=== PATIENT | female | born 2000 | race Caucasian/White ===

== ENCOUNTER 2018-12-11 22:55 | Emergency (ER) | payer OTHER, SELFPAY ==
--- NOTE | 2018-12-11 00:08 | DI.CT_ITS ---
SYMPTOMS/DIAGNOSIS: GENERALIZED ABDOMINAL PAIN, LEFT LOWER QUADRANT AND RIGHT LOWER QUADRANT CT SCAN OF THE ABDOMEN AND PELVIS: CT scan of the abdomen and pelvis was performed following the uneventful administration of intravenous contrast material. There are no priors for comparison. The visualized lung bases are clear. The liver is normal in size. No evidence of a hepatic mass is seen. The portal and superior mesenteric veins are patent. The gallbladder is negative. There is no biliary ductal dilatation. The pancreas and peripancreatic soft tissues are unremarkable, as are the spleen and adrenal glands. The kidneys show normal and symmetric enhancement. No evidence of a solid renal mass or obstruction. The urinary bladder is intact. The reproductive organs are unremarkable. The bowel shows no evidence of obstruction or inflammation. There is a normal appendix present. The abdominal aorta is of normal caliber. No significant abdominal or pelvic adenopathy or pneumoperitoneum is seen. There is a trace amount of free fluid in the cul-de-sac. This may be physiologic. No focal fluid collection is seen to suggest an abscess. At L5-S1, there is a disc bulge slightly eccentric to the left. At L4-L5, there is a small central disc herniation. The bones show no acute abnormality. IMPRESSION: 1. No evidence of an acute abdomen or pelvis. 2. Trace amount of free fluid in the pelvis. This is nonspecific. 3. Disc bulges/herniations at L4-5 and L5-S1. If there are radicular concerns, an MRI of the lumbar spine should be considered for further evaluation.
[2018-12-11 22:58] VITALS: BP 117/61; PULSE 85; RESP 16; TEMP 36.7; O2SAT 98
--- NOTE | 2018-12-11 23:14 | ED.GENADUL_ITS ---
Discharge Plan Disposition Patient Disposition: HOME Condition: Good Discharge Details Chief Complaint: Abd Prob Clinical Impression: Abdominal pain Primary Care Provider: Elfego Myers ED Provider: Elfego Garay Home Meds and New Rx's Prescriptions: No Action Gummies Girls' Multivitamins 1 EACH tablet,chewable 1 ea PO DAILY RF: 0 acetaminophen [Tylenol Extra Strength] 500 mg Tablet 1,000 mg PO QID PRNRF: 0 Discharge Instructions Instructions: Abdominal Pain (ED) Additional Instructions: Your symptoms may be from a mild virus, or a potentially ruptured ovarian cyst. Please take Tylenol and Motrin as needed for pain, stay well-hydrated. If you notice any worsening of your symptoms, or any new symptoms such as vomiting, diarrhea, fever, chills, shortness of breath, chest pain, numbness, weakness, or fainting , please return immediately to the emergency department for reevaluation. Please follow up with your primary care provider as soon as possible for reassessment and reevaluation. As always, it was a pleasure participating in your medical care today. Referrals: Elfego Myers MD [Primary Care Provider] - Medical Decision Making This is a 18-year-old female with a past medical history of previous ovarian cyst who presents today for evaluation of generalized abdominal pain that started this morning. She describes it as crampy in nature. It goes from the lower abdomen, to the epigastric region. No pelvic tenderness though. Exam demonstrates relatively unremarkable abdomen with only mild subjective tenderness. Vital signs are notably normal. She ate dinner recently, has been having regular bowel movements, and has had no nausea or vomiting. We discussed risks and benefits of labs, imaging, medication. At this time we will treat the patient's pain, rehydrate, perform laboratory evaluation to rule out acute process, CT scan to rule out acute appendicitis, ovarian abnormality. Currently no ultrasound is available, and the patient has no pelvic pain or vaginal discharge as it is. 12:[address] scan has returned and demonstrates no evidence of significant acute process. There is evidence of trace ascites in the pelvis, I suspect potentially a ruptured cyst. No evidence of significant hemorrhage. The patient feels near completely resolved with her symptoms after Toradol. Vital signs continue to remain normal, laboratory work-up demonstrates no white count, normal hemoglobin, negative test, benign urinalysis, with no other significant abnormalities. At this time I feel the patient be safely discharged home. CT shows no evidence of appendicitis or other significant acute surgical abnormality. Signs and symptoms appear inconsistent at this time clinically with ovarian torsion. I have extensively reviewed the treatment plan and discharge instructions with the patient and their family. I have addressed all patient concerns at this time. The patient and family was made aware of what symptoms to monitor for that would warrant a return to the emergency department. Discussed the plan with the patient and family, they demonstrate verbal understanding and agreement with our assessment and plan at this time. FINDINGS: Liver: Normal. No mass. Gallbladder and bile ducts: Normal. No calcified stones. No ductal dilation. Pancreas: Normal. No ductal dilation. Spleen: Normal. No splenomegaly. Adrenals: Normal. No mass. Kidneys and ureters: Normal. No hydronephrosis. Stomach and bowel: Normal. No obstruction. No mucosal thickening. Appendix: No evidence of appendicitis. Intraperitoneal space: Trace pelvic ascites. Vasculature: Normal. No abdominal aortic aneurysm. Lymph nodes: Normal. No enlarged lymph nodes. Bladder: Unremarkable as visualized. Reproductive: Unremarkable as visualized. No ovarian cysts. Bones/joints: Left lateral recess disc bulge/protrusion at L5-S1 level. Soft tissues: Unremarkable. IMPRESSION: Nonspecific trace pelvic ascites. Disc bulge/protrusion at L5-S1 level. Thank you for allowing us to participate in the care of your patient. Dictated and Authenticated by: Gary Noel DO [facility] General Date/Time Provider Initiated Documentation: 12/11/18 22:55 . HPI Narrative: This is a 18-year-old female with no significant past medical history except for previous ovarian cyst, who presents today with abdominal pain. She states that the pain began this morning was generalized, however now it is radiating up to the epigastric region. She denies any nausea or vomiting. She describes the pain is crampy in nature, it is improved when she walks around. Worsened when she sits. She denies any dysuria, hematuria, increase in urinary frequency. She denies any diarrhea or constipation. Last bowel movement was 1 or 2 hours ago. She denies any significant recent alcohol intake. She denies any previous symptoms like this in the past. She denies previous abdominal surgeries. She has no other complaints at this time. She denies any vaginal discharge or pelvic pain. She is not currently on her period. She denies any IV or illicit drug use, any pertinent family history, or any previous surgeries Related Data Home Medications Medication Instructions Recorded Confirmed pediatric multivitamin no.29 1 ea PO DAILY 12/12/14 12/11/18 [Gummies Girls' Multivitamins] acetaminophen [Tylenol Extra 1,000 mg PO QID PRN 12/11/18 12/11/18 Strength] Allergies Allergy/AdvReac Type Severity Reaction Status Date / Time No Known Allergies Allergy Unverified 12/11/18 23:01 General Stated Complaint: Abd Prob MARAH: 3 Review of Systems Review of Systems All systems reviewed & are unremarkable except as noted in HPI and below PFSH Medical History Dysmenorrhea Pilonidal cyst with abscess Family History Mother Essential hypertension Migraines Healthy adult Superficial vein thrombosis Father Diabetes Essential hypertension Personal history of malignant neoplasm Hyperlipidemia Other No problems noted. Social History Smoking/Tobacco Use Status: Never Drug use: Never Exam Narrative Exam Narrative: 1.Const: Well-nourished, Well-developed, appearing stated age 2.Eyes: PERRL, no conjunctival injection, and symmetrical lids. 3.ENT: Atraumatic external nose and ears. Moist MM. Neck: Symmetric, trachea midline, No thyromegaly. 4.CVS: +S1/S2, No murmurs or gallops. Peripheral pulses 2+ and equal in all extremities. Brisk capillary refill in all extremities. 5.RESP: Unlabored respiratory effort. Clear to auscultation bilaterally. No wheezes rales or rhonchi 6.GI: Soft, Nondistended, No hepatosplenomegaly. No guarding or rebound. Generalized abdominal tenderness throughout, slightly worse in the right lower and left lower quadrant of the abdomen. Negative Weathers sign. Mild epigastric tenderness as well. Negative obturator and psoas sign. No CVA tenderness. Negative heel strike test. No pelvic tenderness 7.MSK: Normocephalic/Atraumatic, Extremities w/o deformity or ttp No cyanosis or clubbing, Normal movement of all extremities 8.Skin: Warm, Dry. No rashes or lesions. 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 Sensation grossly intact, no focal neurologic deficits. 10.Psych: (AAO) x3. Appropriate mood and affect Course Vital Signs Temperature 36.7 C 12/11/18 22:58 Pulse 85 12/11/18 22:58 Respiratory Rate 16 12/11/18 22:58 Blood Pressure 117/61 12/11/18 22:58 Pulse Oximetry 98 12/11/18 22:58 Temperature 36.7 C 12/11/18 22:58 Temperature Source Skin 12/11/18 22:58 Pulse 85 12/11/18 22:58 Respiratory Rate 16 12/11/18 22:58 Respiratory Effort Non-Labored 12/11/18 23:02 Blood Pressure 117/61 12/11/18 22:58 Blood Pressure Position Sitting 12/11/18 22:58 Pulse Oximetry 98 12/11/18 22:58 Oxygen Delivery Method Room Air 12/11/18 22:58 Oxygen Flow Rate 0 12/11/18 22:58
[2018-12-11 23:15] LABS: Bilirubin Negative (Negative); Blood Negative (Negative); Clarity Clear (Clear); Glucose Negative (Negative); Ketones Negative (Negative); Leukocyte Esterase Trace (Negative); Nitrite Negative (Negative); Urobilinogen 0.2 EU/dL (Up TO 0.2); pH 6.5 (5-8)
[2018-12-11] MEDS: Normal Saline 1,000 ML 1000 ML IV (23:20)
[2018-12-11 23:24] LABS: Bacteria Moderate HPF (Negative); C & S Indicated? Yes; Casts Negative LPF (Negative); Crystals Negative HPF (Negative); Epithelial Cells Few HPF (Negative); Mucus Negative (Negative); RBC Negative (0-2)
[2018-12-11] MEDS: Dicyclomine 20 MG TAB (23:24)
[2018-12-11] MEDS: Ketorolac 30 MG/ML VIAL IVP (23:24)
[2018-12-11 23:31] LABS: Abs Immature Grans 0.03 k/cumm (0.0-0.09); Absolute Basophil Count 0.02 k/cumm (0.0-0.2); Absolute Eosinophil Count 0.05 k/cumm (0.0-0.7); Absolute Lymphocyte Count 2.53 k/cumm (1.2-3.4); Absolute Monocyte Count 0.61 k/cumm (0.11-0.7); Absolute Neutrophil Count 5.39 k/cumm (1.2-6.7); Basophils % 0.2; Eosinophils % 0.6; HGB 13.7 g/dL (12.0-15.5); Immature Grans % 0.3; Lymphocytes % 29.3; Mean Corp. HGB Concentration 33.4 g/dL (32.0-36.0); Mean Corpuscular Hemoglobin 30.4 pg (27.0-33.0); Mean Corpuscular Volume 90.9 fL (80-95); Mean Platelet Volume 10.1 fL (8.0-11.0); Monocytes % 7.1; Neutrophils % 62.5; Platelet Count 263 x1000/uL (130-400); RBC 4.51 m/cumm (4.00-5.20); RBC Distribution Width 12.5 % (11.7-14.6); White Blood Cell Count 8.63 k/cumm (4.4-10.8)
[2018-12-11 23:45] LABS: ALT 32 U/L (12-78); Albumin 3.7 g/dL (3.4-5.0); Alkaline Phosphatase 58 U/L (46-116); Anion Gap 9.5 mmol/L (3-11); BUN 18 mg/dL (7-18); Bilirubin, Total 0.5 mg/dL (0.2-1.0); CO2 25.5 mmol/L (21.0-32.0); CREATININE 1.01 mg/dL (0.55-1.02); Calcium 8.9 mg/dL (8.5-10.1); Chloride 106 mmol/L (98-107); Glucose 110 mg/dL (70-100); Lipase 96 U/L (73-393); Sodium 141 mmol/L (136-145); Total Protein 7.4 g/dL (6.4-8.2)
[2018-12-12 00:02] LABS: AST 21 U/L (15-37)
[2018-12-12] MEDS: Omnipaque 350 MG/ML 100 ML BTL IJ (00:05)
[2018-12-12 00:15] VITALS: BP 121/45; PULSE 70; RESP 18; TEMP 36.7; O2SAT 98
--- NOTE | 2018-12-12 00:31 | DI.VRAD_ITS ---
EXAM: CT Abdomen and Pelvis With Contrast EXAM DATE/TIME: 12/11/2018 11:09 PM CLINICAL HISTORY: 18 years old, female; Abdominal pain; Localized; Left lower quadrant (llq) TECHNIQUE: Imaging protocol: Axial computed tomography images of the abdomen and pelvis with intravenous contrast. Coronal and sagittal reformatted images were created and reviewed. Radiation optimization: All CT scans at this facility use at least one of these dose optimization techniques: automated exposure control; mA and/or kV adjustment per patient size (includes targeted exams where dose is matched to clinical indication); or iterative reconstruction. Contrast material: [id number]; Contrast volume: 100 ml; Contrast route: IV 20G LAC; COMPARISON: No relevant prior studies available. FINDINGS: Liver: Normal. No mass. Gallbladder and bile ducts: Normal. No calcified stones. No ductal dilation. Pancreas: Normal. No ductal dilation. Spleen: Normal. No splenomegaly. Adrenals: Normal. No mass. Kidneys and ureters: Normal. No hydronephrosis. Stomach and bowel: Normal. No obstruction. No mucosal thickening. Appendix: No evidence of appendicitis. Intraperitoneal space: Trace pelvic ascites. Vasculature: Normal. No abdominal aortic aneurysm. Lymph nodes: Normal. No enlarged lymph nodes. Bladder: Unremarkable as visualized. Reproductive: Unremarkable as visualized. No ovarian cysts. Bones/joints: Left lateral recess disc bulge/protrusion at L5-S1 level. Soft tissues: Unremarkable. IMPRESSION: Nonspecific trace pelvic ascites. Disc bulge/protrusion at L5-S1 level. Dictated and Authenticated by: Gary Noel MD. Ordering:LILLIANA Telles MD
[2018-12-12 01:01] VITALS: BP 121/45; PULSE 70; RESP 18; O2SAT 98
== END 2018-12-12 01:02 | disposition home or self-care (01) ==
PROVIDERS: Emergency Provider Student in an Organized Health Care Education/Training Program; PCP Pediatrics
DX: R10.84 Generalized abdominal pain (principal)
CPT/HCPCS: 36415; 80053; 81025; 83690; 96361; 96374; 99285; 74177; 81003; 81015; 85025; 87086; J1885; J3490